=== PATIENT | male | born 1940 | race Caucasian/White ===

== ENCOUNTER 2022-06-04 07:58 | Emergency (ER) | payer OTHER ==
[~2022-06-04] VITALS: Ht 182.9 cm; Wt 63.5 kg
[2022-06-04 08:02] VITALS: BP 166/65
[2022-06-04] MEDS ORDERED: BACITRACIN OINT 500 UNITS/GM PKT TP ONE (08:20)
--- NOTE | 2022-06-04 08:47 | NUR ---
in bed 4, noted skin avulsion injury, covered with petroleum gauze dressing by the medics
--- NOTE | 2022-06-04 09:50 | NUR ---
Patient discharged with v/s stable. Written and verbal after care instructions given and explained. Patient verbalized understanding. Ambulatory with to car. All questions addressed prior to discharge. Advised to follow up with PMD. skin abraion/ avulsions to l jaramillo, l hand and l elbow cleansed with ns, bacitracin and non adherent gauze applied
== END 2022-06-04 10:53 | disposition home or self-care (01) ==
LOC: MED 07:58
DX: S81.812A Laceration without foreign body, left lower leg, initial encounter (principal); S60.512A Abrasion of left hand, initial encounter; Z79.899 Other long term (current) drug therapy; W18.30XA Fall on same level, unspecified, initial encounter; Y93.89 Activity, other specified; Y92.89 Other specified places as the place of occurrence of the external cause; Y99.8 Other external cause status
CPT/HCPCS: 73130; 73590; 90471; 90715; 99284; Q0092